=== PATIENT | female | born 1975 | race Two or more races ===

== ENCOUNTER 2021-02-17 20:03 | Emergency (ER) | payer SELFPAY ==
[~2021-02-17] VITALS: Ht 170.2 cm; Wt 65.8 kg
[2021-02-17 20:13] VITALS: BP 149/101
== END 2021-02-17 22:13 | disposition left against medical advice (07) ==
LOC: ER 20:10
DX: R53.1 Weakness (principal); Z53.21 Procedure and treatment not carried out due to patient leaving prior to being seen by health care provider